=== PATIENT | female | born 1940 | race Caucasian/White ===

== ENCOUNTER 2018-07-01 07:15 | Inpatient (IN) | payer OTHER ==
[~2018-07-01 07:15] MED LIST: TRANEXAMIC ACID 1,000 MG in NS 100 ML IV ONE; fentaNYL 50 MCG in SYRINGE INTRATHECAL 1 SYR IT ONE; morphINE PF 0.2 MG in SYRINGE INTRATHECAL 1 SYR IT ONE
[2018-07-01] MEDS ORDERED: ACETAMINOPHEN 500 MG TAB PO ONE (09:24)
[2018-07-01] MEDS ORDERED: GABAPENTIN 300 MG CAP PO ONE (09:24)
[2018-07-01] MEDS ORDERED: ceFAZolin 2 GM/DEXTROSE 100 ML IV ONE (09:24)
[2018-07-01] MEDS ORDERED: LR 1,000 ML IV ONE (09:25)
[2018-07-01] MEDS ORDERED: LIDOCAINE 1% 2 ML INJ ID PRN (09:25)
[2018-07-01] MEDS ORDERED: CITRATE DEXTROSE SOLN 500 ML BAG ONE ×2 (09:28→11:33)
[2018-07-01] MEDS ORDERED: THROMBIN (BOVINE) 5,000 UNIT VIAL TP ONE (09:28)
[2018-07-01] MEDS ORDERED: EPINEPHrine 1 MG/ML INJ ONE (09:28)
[2018-07-01] MEDS ORDERED: CHLORHEXIDINE GLUC HIBICLENS 118 ML BTL TP ONE (09:28)
[2018-07-01] MEDS ORDERED: BUPIVACAINE 0.25% 30 ML SDV ONE (09:28)
[2018-07-01] MEDS ORDERED: BACITRACIN 50,000 UNITS/10 ML SYR IRR ONE ×3 (09:29→15:47)
[2018-07-01] MEDS ORDERED: TRANEXAMIC ACID 1 MG in NS 100 ML IV ONE (09:52)
[2018-07-01] MEDS ORDERED: TRANEXAMIC ACID 1,000 MG in NS 100 ML IV ONE (10:15)
[2018-07-01] MEDS ORDERED: ACETAMINOPHEN 500 MG TAB ONE (10:28)
[2018-07-01 10:33] LABS: PLATELET COUNT 167 10^3/uL (150-400)
--- NOTE | 2018-07-01 11:12 | PDHPUP ---
History & Physical Update H&P update statement: This history and physical update is based on an assessment of the patient which was completed after admission or registration (within 24 hours), but prior to the surgery/procedure. H&P update: H&P reviewed & patient examined, no change in patient's condition since H&P completed
[2018-07-01] MEDS ORDERED: PROPOFOL/EMULSION 500 MG/50 ML BOTTLE IV ONE ×3 (11:41→14:56)
[2018-07-01] MEDS ORDERED: fentaNYL 100 MCG/2 ML INJ ONE ×4 (11:41→16:53)
[2018-07-01] MEDS ORDERED: ALBUTEROL HFA ANES ONLY 200 PUFFS/8.5 GM MDI IH ONE (11:45)
[2018-07-01] MEDS ORDERED: LIDOCAINE 2% 2 ML INJ ONE (11:45)
[2018-07-01] MEDS ORDERED: ROCURONIUM 50 MG/5 ML VIAL ONE (11:45)
[2018-07-01] MEDS ORDERED: ALBUMIN 25% 50 ML SOLN IV ONE (11:47)
[2018-07-01] MEDS ORDERED: ALBUMIN 5% 250 ML BOTTLE IV ONE (11:48)
--- NOTE | 2018-07-01 11:54 | PDANEPAE ---
ANE Past Medical History - Cardiovascular History Hx Hypertension: Yes Hx Arrhythmias: No Hx Chest Pain: No Hx Coronary Artery / Peripheral Vascular Disease: No Hx CHF / Valvular Disease: No Hx Palpitations: No - Pulmonary History Hx COPD: Yes Hx Asthma/Reactive Airway Disease: Yes Hx Recent Upper Respiratory Infection: No Hx Oxygen in Use at Home: Yes O2 in Use at Home (L/minute): 2-3 Hx Sleep Apnea: No Sleep Apnea Screening Result - Last Documented: Positive Pulmonary History Comment: ASTHMA TRIGGERS ENVIRONMENTAL AND STRESS. CONT OXYGEN FOR COPD. HOSPITALIZED FOR PLEURISY 03/2018 [facility] - Neurologic History Hx Cerebrovascular Accident: No Hx Seizures: No Hx Dementia: No - Endocrine History Hx Diabetes: Yes Endocrine History Comment: HYPOTHYROID. NIDDM - Renal History Hx Renal Disorders: Yes Renal History Comment: SOME UA INCONT WILL USE PAD. PREV UTI'S - Liver History Hx Hepatic Disorders: No - Neurological & Psychiatric Hx Hx Neurological and Psychiatric Disorders: No - Cancer History Hx Cancer: Yes Cancer History Comment: BREAST - Congenital Disorder History Hx Congenital Disorders: No - GI History Hx Gastrointestinal Disorders: Yes Gastrointestinal History Comment: GERD - Other Health History Other Health History: N/T LT LEG. CLAUSTRAPHOBIC. DENTAL IMPLANTS - Chronic Pain History Chronic Pain: Yes (LOWER BACK) - Surgical History Prior Surgeries: LT MIDDLE FINGER FUSION 04/2017. LT BREAST LUMPECTOMY WITH RADIATION THEN MASTECTOMY. BLADE CATARACTS. RT TOTAL SHLDR. RT TOTAL HIP. BLADE BUNION/HAMMER TOES. LT LOWER LOBE REMVL CA. HYSTERECTOMY. TONSILLECTOMY. DEVIATED SEPTUM ANE Review of Systems Review of Systems: - Exercise capacity METS (RN): 2 METS ANE Patient History - Allergies Allergies/Adverse Reactions: No Known Allergies Allergy (Verified 06/13/18 10:48) - Home Medications Home Medications: Acetaminophen [Tylenol ES 500 mg (*)] 500 - 1,000 mg PO Q4HRS PRN 06/13/18 [ Last Taken 06/30/18] Atorvastatin Calcium [Lipitor 10 mg (*)] 10 mg PO DAILY 06/13/18 [Last Taken ] Furosemide [Lasix 20 MG (*)] 20 mg PO DAILY PRN 06/13/18 [Last Taken 06/30/18] Gabapentin [Neurontin 100 MG (*)] 100 mg PO Q6HRS 06/13/18 [Last Taken Unknown] Levothyroxine [Synthroid 50 mcg (*)] 50 mcg PO DAILY06 06/13/18 [Last Taken ] Lisinopril [Zestril 5 mg (*)] 5 mg PO HS 06/13/18 [Last Taken 06/30/18] Melatonin [Melatonin 3 MG (*)] 6 mg PO HS 06/13/18 [Last Taken Unknown] Menthol/Camphor/Irr Cntr-Irtn1 [Vj Natural Pain Relieve Gl] 1 justin TP BID 07/23 [Last Taken 07/01/18] Mometasone 220Mcg Inhaler [Asmanex Inh (*)] 1 puffs IH BID PRN 06/13/18 [Last Taken 07/01/18] Pantoprazole Sodium [Protonix 40mg (*)] 40 mg PO BID 06/13/18 [Last Taken ] Potassium Cl [Klor-Con 20 meq (*)] 20 meq PO DAILY 06/13/18 [Last Taken 06/30/18 ] metFORMIN SR [Glucophage XR 500 mg (*)] 500 mg PO DAILY@1800 06/13/18 [Last Taken 06/30/18] Albuterol [Proventil Inhaler HFA (*)] 1 - 2 puffs IH DAILY PRN 06/14/18 [Last Taken 06/24/18] Augmentin 875 MG TAB (*) 07/01/18 [Last Taken 06/21/18] - NPO status NPO Since - Liquids (Date): 07/01/18 NPO Since - Liquids (Time): 07:00 NPO Since - Solids (Date): 06/30/18 NPO Since - Solids (Time): 21:00 - Smoking Hx Smoking Status: Former smoker ANE Labs/Vital Signs - Labs Result Diagrams: 07/01/18 10:24 07/01/18 10:24 - Vital Signs Blood Pressure: 153/84 Heart Rate: 73 Respiratory Rate: 16 O2 Sat (%): 97 Height: 167.64 cm Weight: 102.058 kg ANE Physical Exam - Airway Neck exam: FROM Mallampati Score: Class 2 Mouth exam: normal dental/mouth exam - Pulmonary Pulmonary: reduced air movement, expiratory wheeze - Cardiovascular Cardiovascular: regular rate and rhythym, no murmur, rub, or gallop - ASA Status ASA Status: IV ANE Anesthesia Plan Anesthesia Plan: general endotracheal anesthesia Lines/Monitors: arterial line, additional IV Total IV Anesthesia: Yes
[2018-07-01] MEDS ORDERED: MAGNESIUM SULFATE 1 GM/2 ML VIAL ONE (12:51)
[2018-07-01] MEDS ORDERED: ePHEDrine SULFATE 25 MG/5 ML SYR ONE (12:57)
[2018-07-01] MEDS ORDERED: DOPamine/DEXTROSE 400 MG/250 ML BAG IV ONE (13:43)
[2018-07-01] MEDS ORDERED: PHENYLEPHRINE 10 MG/ML SDV ONE (13:54)
[2018-07-01] MEDS ORDERED: PHENYLEPHRINE HCL 100 MCG/ML SYR ONE (13:54)
[2018-07-01] MEDS ORDERED: fentaNYL 100 MCG/2 ML INJ IVP PRN (14:22)
[2018-07-01] MEDS ORDERED: DIAZEPAM 5 MG/ML 1 ML SYR IVP PRN (14:22)
[2018-07-01] MEDS ORDERED: NALOXONE HCL 0.4 MG/ML INJ IVP PRN ×2 (14:22→16:34)
[2018-07-01] MEDS ORDERED: DEXAMETHASONE 4 MG/ML VIAL IVP PRN (14:22)
[2018-07-01] MEDS ORDERED: ALBUTEROL 3 ML DEYVIAL IH PRN (14:22)
[2018-07-01] MEDS ORDERED: LR 500 ML IV PRN (14:22)
[2018-07-01] MEDS ORDERED: ONDANSETRON 4 MG/2 ML VIAL IVP PRN ×2 (14:22→16:34)
[2018-07-01] MEDS ORDERED: ceFAZolin 1 GM VIAL ONE (16:05)
[2018-07-01] MEDS ORDERED: MOMETASONE 220MCG INHALER IH PRN (16:32)
[2018-07-01] MEDS ORDERED: ALBUTEROL 60 PUFFS/8 GM MDI IH PRN (16:32)
[2018-07-01] MEDS ORDERED: LACTULOSE 20 GM/30 ML UDCUP PO PRN (16:34)
[2018-07-01] MEDS ORDERED: diphenhydrAMINE 25 MG CAP PO PRN (16:34)
[2018-07-01] MEDS ORDERED: MAGNESIUM HYDROXIDE 30 ML UDCUP PO PRN (16:34)
[2018-07-01] MEDS ORDERED: morphINE PCA 30 MG/30 ML PCA IV PRN (16:34)
[2018-07-01] MEDS ORDERED: BISACODYL 10 MG SUPP PR PRN (16:34)
--- NOTE | 2018-07-01 16:40 | SOAPPROG ---
SOAP Progress Note Assessment/Plan: Assessment: 77 yo F sp L4-S1 TLIF Plan: stable to 3N PT/OT lso brace when out of bed lovenox starts POD #1 please call with neuro changes 07/01/18 16:38 Subjective: + back pain, no leg pain Objective: Vital Signs Temp Pulse Resp BP Pulse Ox 36.6 C 73 16 153/84 H 97 07/01/18 09:51 07/01/18 11:54 07/01/18 11:54 07/01/18 11:54 07/01/18 11:54 Laboratory Results 07/01/18 10:24 07/01/18 10:24 awake PERRL, no facial droop 5/5 + light touch ICD10 Worksheet Patient Problems: Problems Problem Status Onset Fusion of spine of lumbar region Acute - ICD10 Problem Qualifiers (1) Fusion of spine of lumbar region
[2018-07-01] MEDS ORDERED: DIAZEPAM 5 MG TAB PO PRN (16:41)
[2018-07-01] MEDS ORDERED: NS 1,000 ML IV SCH ×2 (16:45→18:00)
--- NOTE | 2018-07-01 17:02 | GOP ---
[f rep st] OPERATIVE REPORT DATE OF OPERATION: 07/01/2018 SURGEON: Esteban Kathleen MD NEUROSURGEON: Esteban Kathleen MD MEAT LOINER: Adama Tam PA-C ANESTHESIA: General endotracheal. PREOPERATIVE DIAGNOSIS: Severe multilevel lumbar degenerative joint disease, spondylolisthesis, and spinal stenosis with left synovial cyst at L4-5 and L5-S1 on the left causing severe neural foraminal impingement and lateral recess stenosis. Intractable back pain and left lower extremity radiculopat hy. Failed conservative care. Morbid obesity. High risk surgical candidate given age, comorbiditie s, and required surgical intervention. POSTOPERATIVE DIAGNOSIS: Severe multilevel lumbar degenerative joint disease, spondylolisthesis, and spinal stenosis with left synovial cyst at L4-5 and L5-S1 on the left causing severe neural foramina l impingement and lateral recess stenosis. Intractable back pain and left lower extremity radiculopa thy. Failed conservative care. Morbid obesity. High risk surgical candidate given age, comorbiditi es, and required surgical intervention. PROCEDURE PERFORMED: Left-sided far lateral transpedicular decompression at the L4-5 and L5-S1 level s with removal of synovial cyst. L4 through S1 posterior segmental (pedicle screw and axle device) f ixation and posterolateral fusion with local autograft and bone morphogenic protein. L4-5 and L5-S1 posterior/transforaminal lumbar interbody fusion with 2 structural PEEK interbody spacers, local auto graft and bone morphogenic protein. Use of intraoperative microscopy, fluoroscopy, and computer volu metric stereotactic navigation with intraoperative neurophysiologic testing. Injection of intratheca l narcotic analgesics and subcutaneous and intramuscular local anesthesia for postoperative pain cont rol. FINDINGS: ESTIMATED BLOOD LOSS: 250 cc. INDICATIONS: The patient is a 77-year-old woman with intractable low back pain and left lower extrem ity radiculopathy secondary to severe degenerative joint disease and disk space collapse with synovia l cyst causing severe lateral recess and neural foraminal impingement. She has failed extensive cons ervative care and presents now for surgical decompression and stabilization. DESCRIPTION OF PROCEDURE: After informed consent was obtained, patient was taken to the operating ro om and placed in a prone position on the Eh table. The lumbosacral area was prepped and draped in sterile fashion. After fluoroscopic localization of correct levels, the subcutaneous and intramus cular tissues were infiltrated with local anesthesia. A midline linear incision was then created over the L4-S1 spinous processes. This was carried to the fascial layer, which was then incised using monopolar electrocautery and carried down to the subperi osteal plane along the spinous processes and lamina bilaterally. Intraoperative fluoroscopy was agai n utilized to verify the correct levels. Following this, the dissection was carried out over the facet joints and the microscope was brought i n. The left-sided far lateral transpedicular decompressions were performed with complete unroofing o f the facet joints, neuroforamen, and lateral recesses. There was a significant amount of arthritis and the depth of the wound was much deeper than normal and more bleeding due to the patient's body escalante bitus and morbid obesity. These synovial cysts were very meticulously dissected off the dura under high-power microscopy and ev entually thorough decompression was performed in the L4-L5 and S1 neural foramina and central canal a s well. The microscope was angled across the midline in order to achieve a bilateral decompression a s best we could. Following adequate decompression, the [employer] neuronavigational system was brought in and using compu Smarp volumetric stereotactic navigation, pedicle screws were placed on the left at the L4, L5, and S1 levels, and on the right at the L4 and S1 levels. The S1 screws were very short at 35 mm and the bon e purchase was not as great as I was hoping for. Nonetheless, distraction was serially created first across the L5-S1 level, then across the L4-5 level during which time complete diskectomies were perf ormed under high-power microscopy with preparation of endplates and placement of 2 structural PEEK in terbody spacers, local autograft, and bone morphogenic protein at each level for L4-5 and L5-S1 poste rior/transforaminal lumbar interbody fusions. The rods were then placed in a slight amount of compre ssion in order to facilitate bony union and to minimize the potential for posterior graft migration a t both levels. An axle device placed at the L5-S1 level to add support given her weight and the shor ter screws at S1 and the not so great screw purchase into the bone. The remaining lamina and facet j oints on the right were then extensively decorticated, and the residual local autograft, along with b one morphogenic protein was placed out laterally for posterolateral fusion from L4 to S1. After copiously irrigating the wound with antibiotic irrigation. The subcutaneous and intramuscular tissues were infiltrated with local anesthesia and 200 mcg of Duramorph, along with 50 mcg of fentany l were injected intrathecally for postoperative pain control. Drain was placed and the wound was brianna sed in a layered fashion using interrupted Vicryl sutures, followed by Steri-Strips on the skin. COMPLICATIONS: None. DISPOSITION: The patient is currently in the process of being repositioned for extubation. /[id number]/MODL
--- NOTE | 2018-07-01 17:07 | POSTANESTH ---
Post Anesthetic Evaluation Cardiovascular Status: Normal, Stable, Similar to Pre-Op Cond Respiratory Status: Normal, Stable, Similar to Pre-op Cond. Level of Consciousness/Mental Status: Mildly Sleepy, Arousable Pain Control: Adequate, Prn Tx Ordered Nausea/Vomiting Control: Adequate, Prn Tx Ordered Complications Possibly Related to Anesthesia: None Noted
[2018-07-01] MEDS ORDERED: DIAZEPAM 5 MG/ML 1 ML SYR ONE (17:08)
[2018-07-01] MEDS ORDERED: ALBUTEROL 3 ML DEYVIAL ONE (17:34)
[2018-07-01] MEDS ORDERED: IPRATROPIUM/ALBUTEROL 3 ML DEYVIAL IH PRN (17:49)
[2018-07-01] MEDS ORDERED: GABAPENTIN 100 MG CAP PO SCH (18:00)
[2018-07-01] MEDS: METHOCARBAMOL 750 MG TAB PO PRN (18:26)
[2018-07-01] MEDS: metFORMIN SR 500 MG TAB PO SCH (18:26)
[2018-07-01] MEDS: ONDANSETRON DISINTEGRATING 4 MG TAB PO PRN ×2 (18:48→19:50)
--- NOTE | 2018-07-01 19:07 | GCON ---
[f rep st] CONSULTATION DATE OF CONSULTATION: 07/01/2018 REFERRING PHYSICIAN: Esteban Kathleen MD REASON FOR CONSULTATION: Management of chronic medical issues. HISTORY OF PRESENT ILLNESSACTIONS: 77-year-old female with hypertension, COPD, chronic hypoxemic respiratory failure, underwent elective L4 through S1 posterior segmental fixation and posterior lateral fusion. She has complained of left hip pain for 2 years in her left hip. Symptoms not improved with bursa injections. She fell in March, which exacerbated her pain. She was participating in physical therapy prior to that. She also had low back pain that radiated to the left knee and lateral calf and foot. Pain was worse with walking, standing, or sleeping. Also had lumbar facet injections at L5-S1. Next, after surgery, she was complaining of shortness of breath, wheezing, and hypoxic. She has been using gabapentin since March, but says it makes her forgetful with the q.i.d. dosing. Denies chest pain, nausea, vomiting. Pain is controlled currently. REVIEW OF SYSTEMS: I completed a 10-point review of systems. Negative except as noted in HPI. PAST MEDICAL HISTORY: COPD, chronic hypoxemic respiratory failure on 2 L, hypertension, CKD, GERD, colon polyps, IBD, asthma, breast cancer in 2011, diabetes. PAST SURGICAL HISTORY: Bursa injections, L5-S1 injections, and surgery today. FAMILY HISTORY: Dad with arthritis. Mother with heart issues. SOCIAL HISTORY: Lives with her in [place]. Has 5 daughters, 12 grandchildren. Smoked a pack a day for 30 years, quit 26 years ago. No alcohol or illicits. ALLERGIES: None. HOME MEDICATIONS: Albuterol inhaler p.r.n., lisinopril 5 mg q.h.s., Tylenol as needed, Lasix 20 mg daily p.r.n., atorvastatin 10 mg daily, potassium 20 mEq daily, Protonix 40 mg b.i.d., Synthroid 50 mcg daily, metformin 500 mg daily, mometasone 220 mcg inhaler 1 puff b.i.d. p.r.n., melatonin, gabapentin 100 mg q.6 hours. PHYSICAL EXAMINATION: VITAL SIGNS: Temperature is afebrile. Blood pressure is 93/46. Heart rate is in the 70s, respirations 16, 87% on room air, 96 on 4 L. GENERAL: She is sitting up in no acute distress, currently having a breathing treatment. HEENT: PERRLA. Moist mucous membranes. CV: Regular rate and rhythm. LUNGS: Expiratory wheezing. No crackles. ABDOMEN: Soft, nontender, nondistended. Positive bowel sounds. : No Kim. MUSCULOSKELETAL: 5/5 upper and lower extremity strength. NEURO: 2-12 intact. PSYCH: Alert and oriented x3, very pleasant. LABS: WBC 5, hemoglobin 12, hematocrit 37, platelets 167. Sodium 140, potassium 4.1, chloride 105, carbon dioxide 20, creatinine 0.7, glucose 105. Calcium is 8.9. ASSESSMENT AND PLAN: 1. Severe multilevel lumbar degenerative joint disease: s/pL4-L5 and L5-S1 posterior transforaminal fusion. Pain currently controlled. Physical therapy, occupational therapy in place. Limit amount of narcotics and muscle relaxer with COPD and concern of respiratory depression. Schedule Tylenol, p.r.n. Oxy or morphine if needed. She is opioid naive. change gabapentin to 300 mg q.h.s. rather than q.i.d. dosing since it is affecting memory during the day. 2. Hypotension: from anesthesia. Hold lisinopril. Give fluids. 3. Chronic obstructive pulmonary disease/asthma. P.r.n. DuoNebs. Mometasone. 4. Chronic kidney disease. Creatinine stable. 5. GERD: PPI 6. Chronic hypoxemic respiratory failure: wheezy after procedure. We will monitor closely on pulse ox p.r.n. DuoNebs. 7. Diet: Regular. 8. Deep vein thrombosis prophylaxis: Lovenox. DISPOSITION: Thank you for this consult. We will follow along. Please call if any questions. /[id number]/MODL MTDD
[2018-07-01] MEDS: ceFAZolin 2 GM/DEXTROSE 100 ML IV SCH (19:51)
[2018-07-01] MEDS ORDERED: morphINE SR 15 MG TAB PO SCH (21:00)
[2018-07-01] MEDS ORDERED: LISINOPRIL 5 MG TAB PO SCH (21:00)
[2018-07-01] MEDS ORDERED: PROMETHAZINE HCL 25 MG/ML INJ IVP PRN (21:23)
[2018-07-01] MEDS: SENNOSIDES/DOCUSATE SODIUM TAB PO SCH (22:02)
[2018-07-01] MEDS: FAMOTIDINE 20 MG TAB PO SCH (22:02)
[2018-07-01] MEDS: PANTOPRAZOLE SODIUM 40 MG TAB PO SCH (22:02)
[2018-07-01] MEDS: ACETAMINOPHEN 500 MG TAB PO SCH (22:03)
[2018-07-01] MEDS: oxyCODONE IR 5 MG TAB PO PRN (22:03)
[2018-07-01] MEDS: GABAPENTIN 100 MG CAP PO SCH (22:03)
[2018-07-01] MEDS: POLYETHYLENE GLYCOL 3350 17 GM PKT PO SCH (22:04)
[2018-07-02] MEDS: oxyCODONE IR 5 MG TAB PO PRN ×3 (03:00→14:11)
[2018-07-02] MEDS: METHOCARBAMOL 750 MG TAB PO PRN ×2 (03:01→23:24)
[2018-07-02] MEDS: ceFAZolin 2 GM/DEXTROSE 100 ML IV SCH (03:01)
[2018-07-02] MEDS: LEVOTHYROXINE 50 MCG TAB PO SCH (04:55)
[2018-07-02 05:35] LABS: PLATELET COUNT 171 10^3/uL (150-400)
--- NOTE | 2018-07-02 07:22 | PDMN ---
Medical Necessity Medical [place] [facility] [place]: TLIF L4-S1
--- NOTE | 2018-07-02 07:30 | SOAPPROG ---
SOAP Progress Note Assessment/Plan: Assessment: POD #1 sp L4-S1 TLIF Doing well. Buttock and leg pain improved denies new numbness, tingling or weakness Plan: PT/OT today Continue ALBERTO to bulb suction LSO when Out of bed Xrays today for evaluation of hardware D/W Dr. Dunne 07/02/18 07:27 Subjective: out of bed on bedside commode. Doing well, no new complaints States her bilateral buttock and leg pain feels improved Objective: Vital Signs Temp Pulse Resp BP Pulse Ox 36.7 C 83 16 104/63 90 L 07/02/18 04:58 07/02/18 04:58 07/02/18 04:58 07/02/18 04:58 07/02/18 04:58 Laboratory Results 07/02/18 04:56 07/02/18 04:56 07/01/18 07/02/18 07/03/18 05:59 05:59 05:59 Intake Total 3520 Output Total 1330 Balance 2190 neuro: ARREAGA, sens +LT follows commands speech clear ALBERTO: 30ml this AM ICD10 Worksheet Patient Problems: Problems Problem Status Onset Fusion of spine of lumbar region Acute
[2018-07-02] MEDS: ENOXAPARIN 40 MG/0.4 ML SYR SC SCH (09:22)
[2018-07-02] MEDS: PANTOPRAZOLE SODIUM 40 MG TAB PO SCH ×2 (09:22→22:29)
[2018-07-02] MEDS: ATORVASTATIN CALCIUM 10 MG TAB PO SCH (09:22)
[2018-07-02] MEDS: POTASSIUM CL 20 MEQ TAB PO SCH (09:22)
[2018-07-02] MEDS: POLYETHYLENE GLYCOL 3350 17 GM PKT PO SCH ×3 (09:23→22:30)
[2018-07-02] MEDS: ACETAMINOPHEN 500 MG TAB PO SCH ×3 (09:23→22:28)
[2018-07-02] MEDS: SENNOSIDES/DOCUSATE SODIUM TAB PO SCH ×2 (09:23→22:29)
[2018-07-02] MEDS: FAMOTIDINE 20 MG TAB PO SCH ×2 (09:23→22:29)
--- NOTE | 2018-07-02 12:17 | HOSPPROG ---
Hospitalist Progress Note Assessment/Plan: 77y female postop surgery. First encounter, chart reviewed. #POD #1 sp L4-S1 TLIF -Doing well. -Buttock and leg pain improved -denies new numbness, tingling or weakness -ALBERTO -PT/OT #Acute on chronic hypoxemia -baseline 2L -on 4L, IS and titrate down #Hypotension -stable -responded to fluids #COPD -treatment #Pain -controlled #N/V -resolved #CKD -stable #GERD -PPI #Dispo -to SNF when able -D/W CM Subjective: Feels well. No nausea. Pain controlled. Objective: Vital Signs Temp Pulse Resp BP Pulse Ox 37.4 C 80 18 105/67 94 07/02/18 11:37 07/02/18 11:37 07/02/18 11:37 07/02/18 11:37 07/02/18 11:37 Laboratory Results 07/02/18 04:56 07/02/18 04:56 07/01/18 07/02/18 07/03/18 05:59 05:59 05:59 Intake Total 3520 Output Total 1330 40 Balance 2190 -40 - Physical Exam Constitutional: appears nourished, not in pain, obese Eyes: PERRL, anicteric sclera, EOMI Ears, Nose, Mouth, Throat: moist mucous membranes, hearing normal, ears appear normal Cardiovascular: regular rate and rhythym, No JVD, No edema Respiratory: no respiratory distress, no rales or rhonchi, reduced air movement Gastrointestinal: normoactive bowel sounds, No tenderness, No ascites Skin: warm, normal color, No mottled Musculoskeletal: normal joint ROM, no joint effusions, generalized weakness Neurologic: AAOx3 Psychiatric: interacting appropriately, not anxious, not encephalopathic, thought process linear ICD10 Worksheet Patient Problems: Problems Problem Status Onset Fusion of spine of lumbar region Acute
--- NOTE | 2018-07-02 16:52 | ASMTCMCOM ---
CM Note CM Note Notes: Pt had planned back surgery. PT/OT rec SNF. Pt resides with spouse and prior to surgery toured [facility] which is number one SNF choice. Referral sent in [employer] and [facility] accept pt. D/c plan of care: [facility] Date Signed: 07/02/2018 04:51 PM Electronically Signed By:PREM Valerio
[2018-07-02] MEDS: metFORMIN SR 500 MG TAB PO SCH (17:56)
[2018-07-02] MEDS: FUROSEMIDE 20 MG TAB PO PRN (18:26)
[2018-07-02] MEDS: GABAPENTIN 100 MG CAP PO SCH (22:33)
[2018-07-03] MEDS: oxyCODONE IR 5 MG TAB PO PRN ×2 (02:45→22:20)
[2018-07-03] MEDS: LEVOTHYROXINE 50 MCG TAB PO SCH (07:21)
--- NOTE | 2018-07-03 07:48 | SOAPPROG ---
SOAP Progress Note Assessment/Plan: Assessment: POD #2 sp L4-S1 TLIF Doing well. Improving sensation in left ankle/foot Buttock and leg pain improved denies new numbness, tingling or weakness ALBERTO popped off on transition this AM Plan: PT/OT today Continue ALBERTO to bulb suction LSO when Out of bed Xrays today for evaluation of hardware strip ALBERTO, change dressing D/W Dr. Dunne 07/02/18 07:27 07/03/18 07:45 07/03/18 07:47 Subjective: out of bed in bedside chair, feeling good this AM. Refused her Gabapentin yesterday and is now feeling more clear headed. Denies new numbness, tinging or weakness Objective: Vital Signs Temp Pulse Resp BP Pulse Ox 36.5 C 69 18 100/70 94 07/03/18 07:33 07/03/18 07:33 07/03/18 07:33 07/03/18 07:33 07/03/18 07:33 Laboratory Results 07/02/18 04:56 07/02/18 04:56 07/02/18 07/03/18 07/04/18 05:59 05:59 05:59 Intake Total 3520 1000 Output Total 1330 1270 650 Balance 7481 -641 -650 Neuro: ARREAGA, Sens +LT throughout Dressing: partially saturated - RN will change now ALBERTO: bulb popped off. Reattached with new sterile bulb. 50 ml overnight ICD10 Worksheet Patient Problems: Problems Problem Status Onset Fusion of spine of lumbar region Acute
--- NOTE | 2018-07-03 08:28 | HOSPPROG ---
Hospitalist Progress Note Assessment/Plan: 77y female postop surgery. First encounter, chart reviewed. * Severe multilevel lumbar DDD -POD #2 sp L4-S1 TLIF -PT and OT #Acute on chronic hypoxemia -baseline 2L -on 3L, IS and titrate down #Hypotension -resolved w IV hydration #COPD, asthma -prn duonebs #anemia -post op setting, will follow #Pain -controlled #N/V -resolved #CKD -stable #GERD -PPI #Dispo -pending #plan: check magnesium level, patient's daughter said her mom's levels fluctuate. Subjective: Nan has no complaints, back is uncomfortable. Objective: Vital Signs Temp Pulse Resp BP Pulse Ox 36.5 C 69 18 100/70 94 07/03/18 07:33 07/03/18 07:33 07/03/18 07:33 07/03/18 07:33 07/03/18 07:33 Laboratory Results 07/02/18 04:56 07/02/18 04:56 07/02/18 07/03/18 07/04/18 05:59 05:59 05:59 Intake Total 3520 1000 Output Total 1330 1270 650 Balance 2190 -762 -650 - Physical Exam Constitutional: obese, uncomfortable Eyes: PERRL Ears, Nose, Mouth, Throat: hearing normal Cardiovascular: regular rate and rhythym, systolic murmur (soft) Respiratory: no respiratory distress, reduced air movement (bases) Skin: warm Musculoskeletal: generalized weakness Neurologic: AAOx3 Psychiatric: interacting appropriately ICD10 Worksheet Patient Problems: Problems Problem Status Onset Fusion of spine of lumbar region Acute
[2018-07-03] MEDS: ACETAMINOPHEN 500 MG TAB PO SCH ×3 (09:31→23:18)
[2018-07-03] MEDS: PANTOPRAZOLE SODIUM 40 MG TAB PO SCH ×2 (09:33→22:10)
[2018-07-03] MEDS: FAMOTIDINE 20 MG TAB PO SCH ×2 (09:33→22:10)
[2018-07-03] MEDS: POTASSIUM CL 20 MEQ TAB PO SCH (09:33)
[2018-07-03] MEDS: SENNOSIDES/DOCUSATE SODIUM TAB PO SCH ×2 (09:33→22:08)
[2018-07-03] MEDS: ENOXAPARIN 40 MG/0.4 ML SYR SC SCH (09:34)
[2018-07-03] MEDS: POLYETHYLENE GLYCOL 3350 17 GM PKT PO SCH ×3 (09:34→22:15)
[2018-07-03] MEDS: ATORVASTATIN CALCIUM 10 MG TAB PO SCH (09:34)
[2018-07-03] MEDS: metFORMIN SR 500 MG TAB PO SCH (18:04)
[2018-07-03] MEDS: METHOCARBAMOL 750 MG TAB PO PRN (18:04)
[2018-07-03] MEDS: FUROSEMIDE 20 MG TAB PO PRN (18:05)
[2018-07-03] MEDS: MOMETASONE 220MCG INHALER IH SCH (21:37)
[2018-07-03] MEDS: GABAPENTIN 100 MG CAP PO SCH (22:08)
[2018-07-04] MEDS: METHOCARBAMOL 750 MG TAB PO PRN ×3 (04:54→13:55)
[2018-07-04] MEDS: LEVOTHYROXINE 50 MCG TAB PO SCH (04:54)
[2018-07-04] MEDS: oxyCODONE IR 5 MG TAB PO PRN (06:50)
[2018-07-04 07:57] VITALS: BP 104/63
[2018-07-04] MEDS: ENOXAPARIN 40 MG/0.4 ML SYR SC SCH (09:02)
[2018-07-04] MEDS: POTASSIUM CL 20 MEQ TAB PO SCH (09:02)
[2018-07-04] MEDS: SENNOSIDES/DOCUSATE SODIUM TAB PO SCH (09:02)
[2018-07-04] MEDS: PANTOPRAZOLE SODIUM 40 MG TAB PO SCH (09:02)
[2018-07-04] MEDS: POLYETHYLENE GLYCOL 3350 17 GM PKT PO SCH ×2 (09:02→15:21)
[2018-07-04] MEDS: FAMOTIDINE 20 MG TAB PO SCH (09:03)
[2018-07-04] MEDS: ATORVASTATIN CALCIUM 10 MG TAB PO SCH (09:03)
[2018-07-04] MEDS: ACETAMINOPHEN 500 MG TAB PO SCH ×2 (09:03→12:18)
[2018-07-04] MEDS: MOMETASONE 220MCG INHALER IH SCH (09:04)
--- NOTE | 2018-07-04 12:39 | SOAPPROG ---
SOAP Progress Note Assessment/Plan: Assessment: 77 yo F POD #3 L4-S1 TLIF Plan: stable and doing well overall post op x-rays PT/OT lso brace when out of bed scd/tianna/lovenox for dvt prophylaxis dc estate planner looking at snf options please call with neuro changes patient seen by Dr Dunne 07/01/18 16:38 07/04/18 12:37 Subjective: continued back pain, no leg pain. Objective: Vital Signs Temp Pulse Resp BP Pulse Ox 37.1 C 84 14 104/63 93 07/04/18 07:56 07/04/18 07:56 07/04/18 07:56 07/04/18 07:56 07/04/18 07:56 Laboratory Results 07/02/18 04:56 07/02/18 04:56 07/03/18 07/04/18 07/05/18 05:59 05:59 05:59 Intake Total 1000 700 Output Total 1270 3250 300 Balance -270 -2550 -300 AAOx4, +FC PERRL, EOMI, no facial droop 5/5 + light touch C/D/I ICD10 Worksheet Patient Problems: Problems Problem Status Onset Fusion of spine of lumbar region Acute - ICD10 Problem Qualifiers (1) Fusion of spine of lumbar region
--- NOTE | 2018-07-04 14:16 | HOSPPROG ---
Hospitalist Progress Note Assessment/Plan: 77y female postop surgery. * Severe multilevel lumbar DDD -POD #3 sp L4-S1 TLIF -PT and OT #Acute on chronic hypoxemia -baseline 2L -on 3L, IS and titrate down #Hypotension -resolved w IV hydration #COPD, asthma -prn duonebs #anemia -post op setting, will follow #Pain -controlled #N/V -resolved #CKD -stable #GERD -PPI #Dispo -pending #plan: She will go to rehab today Subjective: Nan has no complaints except for some constipation. Objective: Vital Signs Temp Pulse Resp BP Pulse Ox 37.1 C 84 14 104/63 93 07/04/18 07:56 07/04/18 07:56 07/04/18 07:56 07/04/18 07:56 07/04/18 07:56 Laboratory Results 07/02/18 04:56 07/02/18 04:56 07/03/18 07/04/18 07/05/18 05:59 05:59 05:59 Intake Total 1000 700 Output Total 1270 3250 300 Balance -270 -2550 -300 - Physical Exam Constitutional: chronically ill appearing, obese Eyes: PERRL Ears, Nose, Mouth, Throat: hearing normal Cardiovascular: regular rate and rhythym Respiratory: no respiratory distress Gastrointestinal: normoactive bowel sounds Skin: warm Musculoskeletal: generalized weakness Neurologic: AAOx3 Psychiatric: interacting appropriately ICD10 Worksheet Patient Problems: Problems Problem Status Onset Fusion of spine of lumbar region Acute
--- NOTE | 2018-07-04 14:19 | PDIAF ---
- Diagnosis Code Status: Full Code - Medication Management Discharge Medications: Medications to Continue on Transfer Acetaminophen [Tylenol ES 500 mg (*)] 500 - 1,000 mg PO Q4HRS PRN 06/13/18 [ Last Taken 06/30/18] Atorvastatin Calcium [Lipitor 10 mg (*)] 10 mg PO DAILY 06/13/18 [Last Taken ] Furosemide [Lasix 20 MG (*)] 20 mg PO DAILY PRN 06/13/18 [Last Taken 06/30/18] Gabapentin [Neurontin 100 MG (*)] 100 mg PO Q6HRS 06/13/18 [Last Taken Unknown] Levothyroxine [Synthroid 50 mcg (*)] 50 mcg PO DAILY06 06/13/18 [Last Taken ] Lisinopril [Zestril 5 mg (*)] 5 mg PO HS 06/13/18 [Last Taken 06/30/18] Melatonin [Melatonin 3 MG (*)] 6 mg PO HS 06/13/18 [Last Taken Unknown] Menthol/Camphor/Irr Cntr-Irtn1 [Vj Natural Pain Relieve Gl] 1 justin TP BID 07/23 [Last Taken 07/01/18] Mometasone 220Mcg Inhaler [Asmanex Inh (*)] 1 puffs IH BID PRN 06/13/18 [Last Taken 07/01/18] Pantoprazole Sodium [Protonix 40mg (*)] 40 mg PO BID 06/13/18 [Last Taken ] Potassium Cl [Klor-Con 20 meq (*)] 20 meq PO DAILY 06/13/18 [Last Taken 06/30/18 ] metFORMIN SR [Glucophage XR 500 mg (*)] 500 mg PO DAILY@1800 06/13/18 [Last Taken 06/30/18] Albuterol [Proventil Inhaler HFA (*)] 1 - 2 puffs IH DAILY PRN 06/14/18 [Last Taken 06/24/18] Enoxaparin [Lovenox 40 MG (*)] 40 mg SC DAILY syr 07/04/18 [Last Taken Unknown] Methocarbamol [Robaxin 750 mg (*)] 750 mg PO QID PRN tab 07/04/18 [Last Taken Unknown] Polyethylene Glycol 3350 [Miralax 17 gm (*)] 17 gm PO TID pkt 07/04/18 [Last Taken Unknown] oxyCODONE IR [Oxycodone Ir (*)] 5 - 10 mg PO Q4HRS PRN tab 07/04/18 [Last Taken Unknown] Discharge Medications: Refer to the Discharge Home Medication list for PRN reason. PICC Care - Routine: N/A - Orders Services needed: Registered Nurse, Physical Therapy, Occupational Therapy Diet Recommendation: no restrictions on diet Diet Texture: Regular Texture Diet Equipment: LSO brace when out of bed, remove ALBERTO 07/05/18 Additional Instructions: Please discharge with lumbar fusion instructions. Follow up with Dr. Dunne in 2 weeks. Please remove ALBERTO drain on Sunday07/05/18. - Follow Up Care Current Providers and Referrals: Nessa Gómez MD [Primary Care Provider] -
[2018-07-04] MEDS ORDERED: BISACODYL 10 MG SUPP PR ONE (14:24)
--- NOTE | 2018-07-04 15:54 | ASMTLACE ---
LACE Length of stay for Answers: 4-6 days current admission Acuity / Level of Answers: Yes Care: Did the patient have an inpatient admission? Comorbidities - select Answers: Chronic pulmonary disease all that apply Diabetes (uncontrolled or controlled) Opioid dependence / Chronic pain Other Notes: HTN; GERD; Asthma # of Emergency department Answers: 0 visits in the last 6 months Score: 15 Date Signed: 07/04/2018 03:53 PM Electronically Signed By:PREM Valerio
--- NOTE | 2018-07-04 15:55 | ASMTCMCOM ---
CM Note CM Note Notes: Pt medically stable for d/c to [facility]. Orders sent in [employer]. Id[facility] with [facility] scheduled [facility] transport. Date Signed: 07/04/2018 03:54 PM Electronically Signed By:PREM Valerio
[2018-07-04] MEDS: metFORMIN SR 500 MG TAB PO SCH (16:01)
--- NOTE | 2018-07-09 09:16 | GDS ---
ADMISSION DIAGNOSIS: Lumbar degenerative joint disease and stenosis. DISCHARGE DIAGNOSIS: Status post L4-5 and L5-S1 transforaminal lumbar interbody fusion. HISTORY AND PHYSICAL: Please see admission history and physical. COURSE: Patient is a 77-year-old female who presented with low back pain and lower extremity radicul ar symptoms. She was taken to the operating room on 07/01/2017, where she underwent L4-5, L5-S1 barrett sforaminal lumbar interbody fusion. There were no intraoperative complications, and she was admitted to the floor for observation. On the floor, she was tolerating a regular diet and pain was controll ed with p.o. pain medications. [facility] was [facility] 07[facility]2018. Patient w as discharged with lumbar fusion instructions and recommended she return for neurosurgical followup a ppointment in 10-14 days. /[id number]/MODL
== END 2018-07-04 16:39 | DRG 454 ==
LOC: F3N 08:59
PROVIDERS: ADMIT Neurological Surgery; ATTEND Neurological Surgery
PROC: 0SG0071 Fusion of Lumbar Vertebral Joint with Autologous Tissue Substitute, Posterior Approach, Posterior Column, Open Approach (ICD-10-PCS; principal; 2018-07-01 10:45)
PROC: 0ST40ZZ Resection of Lumbosacral Disc, Open Approach (ICD-10-PCS; principal; 2018-07-01 10:45)
PROC: 8E0WXBF Computer Assisted Procedure of Trunk Region, With Fluoroscopy (ICD-10-PCS; principal; 2018-07-01 10:45)
PROC: 0ST20ZZ Resection of Lumbar Vertebral Disc, Open Approach (ICD-10-PCS; principal; 2018-07-01 10:45)
PROC: 0SG3071 Fusion of Lumbosacral Joint with Autologous Tissue Substitute, Posterior Approach, Posterior Column, Open Approach (ICD-10-PCS; principal; 2018-07-01 10:45)
PROC: 01NB0ZZ Release Lumbar Nerve, Open Approach (ICD-10-PCS; principal; 2018-07-01 10:45)
PROC: 0SG30AJ Fusion of Lumbosacral Joint with Interbody Fusion Device, Posterior Approach, Anterior Column, Open Approach (ICD-10-PCS; principal; 2018-07-01 10:45)
PROC: 0SG00AJ Fusion of Lumbar Vertebral Joint with Interbody Fusion Device, Posterior Approach, Anterior Column, Open Approach (ICD-10-PCS; principal; 2018-07-01 10:45)
PROC: 4A1004G Monitoring of Central Nervous Electrical Activity, Intraoperative, Open Approach (ICD-10-PCS; principal; 2018-07-01 10:45)
PROC: 3E0U0GB Introduction of Recombinant Bone Morphogenetic Protein into Joints, Open Approach (ICD-10-PCS; principal; 2018-07-01 10:45)
DX: M47.26 Other spondylosis with radiculopathy, lumbar region (principal); M47.27 Other spondylosis with radiculopathy, lumbosacral region; M43.16 Spondylolisthesis, lumbar region; M43.17 Spondylolisthesis, lumbosacral region; M71.38 Other bursal cyst, other site; M48.061 Spinal stenosis, lumbar region without neurogenic claudication; M48.07 Spinal stenosis, lumbosacral region; E66.01 Morbid (severe) obesity due to excess calories; J44.9 Chronic obstructive pulmonary disease, unspecified; J96.11 Chronic respiratory failure with hypoxia; I12.9 Hypertensive chronic kidney disease with stage 1 through stage 4 chronic kidney disease, or unspecified chronic kidney disease; N18.9 Chronic kidney disease, unspecified; I95.9 Hypotension, unspecified; K21.9 Gastro-esophageal reflux disease without esophagitis; Z85.3 Personal history of malignant neoplasm of breast; E11.22 Type 2 diabetes mellitus with diabetic chronic kidney disease; Z87.891 Personal history of nicotine dependence
CPT/HCPCS: 97116-GP; 97161-GP; 97166-GO; 97530-GP; 97535-GO; C1713; G8978-GP-CK; G8979-GP-CJ; G8980-GP-CJ; G8987-GO-CL; G8988-GO-CK; J0171; J0690; J1265; J1650; J2274; J2370; J2550; J2704; J3010; J3360; J3475; J7060; J7613; P9041; P9047